=== PATIENT | female | born 1960 | race Caucasian/White ===

== ENCOUNTER 2016-10-23 23:13 | Emergency (ER) | payer OTHER ==
[~2016-10-23] VITALS: Ht 160 cm; Wt 61.0 kg
[~2016-10-23 23:13] MED LIST: ASPI325T4 PO; CYCL-319 PO; FELO10TA PO; FENO160T13 PO; FURO20TA3 PO; GABA-526 PO; GLIP5TAB13 PO; LANT3I SC; METO-429 PO; NIT4 SL; NOVO3I SC; PANT40TA4 PO
[2016-10-23 23:34] VITALS: Ht 160 cm; Wt 61.0 kg
--- NOTE | 2016-10-24 02:18 | ERD ---
ER Documentation Chief Complaint Date/Time DATE: 10/24/16 TIME: 02:12 Chief Complaint non-healing wound over R 3rd toe x 3 days now, hx DM HPI This is a 56-year-old female presenting to emergency department for wound on right third toe 3 days. Patient states she had her nails trimmed 3 days ago. Patient states she soaked her nail in water and states that nail fell off while she was asleep. No fevers or chills. No surrounding erythema, warmth, or drainage. ROS All systems reviewed and are negative except as per history of present illness. Medications Home Meds Active Scripts Cephalexin* (Keflex*) 500 Mg Capsule, 500 MG PO QID for 5 Days, CAP Prov:FAMILIA PRESLEY NP 10/24/16 Insulin Aspart* (Novolog Insulin Pen*) 100 Unit/Ml Soln, 5 UNIT SC AC MEALS for 28 Days Prov:STEF MURO MD 09/16/16 Pantoprazole* (Pantoprazole*) 40 Mg Tablet.dr, 40 MG PO DAILY@06 for 28 Days Prov:STEF MURO MD 09/16/16 Aspirin (Aspirin Lite-Coat) 325 Mg Tablet, 325 MG PO DAILY for 28 Days, TAB Prov:STEF MURO MD 09/16/16 Nitroglycerin* (Nitrostat*) 0.4 Mg Tab.subl, 1 TAB SL Q5M Y for ANGINA for 28 Days Prov:STEF MURO MD 09/16/16 Furosemide* (Furosemide*) 20 Mg Tablet, 20 MG PO DAILY for 28 Days, #60 TAB Prov:STEF MURO MD 09/16/16 Reported Medications Metoprolol Tartrate* (Lopressor*) 50 Mg Tab, 50 MG PO BID, #60 TAB 09/13/16 Fenofibrate, Micronized* (Fenofibrate*) 160 Mg Tablet, 160 MG PO DAILY, TAB 09/13/16 Gabapentin* (Gabapentin*) 600 Mg Tablet, 600 MG PO BID, #60 TAB 09/13/16 Felodipine* (Felodipine*) 10 Mg Tab.sr.24h, 10 MG PO DAILY, TAB.SA 09/13/16 Glipizide* (Glipizide*) 5 Mg Tablet, 5 MG PO AC BREAKFAST DINNER, TAB 09/13/16 Insulin Glargine* (Lantus*) 100 Unit/Ml Soln, 30 UNIT SC QHS, #1 VIAL 09/13/16 Cyclobenzaprine Hcl* (Cyclobenzaprine Hcl*) 10 Mg Tablet, 10 MG PO Q8 Y for as needed, #60 TAB 09/13/16 Allergies Allergies: Coded Allergies: No Known Allergy (Unverified , 09/13/16) PMhx/Soc History of Surgery: Yes (, tubal ligation) Anesthesia Reaction: No Hx Neurological Disorder: No Hx Respiratory Disorders: No Hx Cardiac Disorders: Yes (chf, htn, hyperlipidemia) Hx Psychiatric Problems: No Hx Miscellaneous Medical Probl: Yes (DM) Hx Alcohol Use: No Hx Substance Use: No Hx Tobacco Use: No Smoking Status: Never smoker Physical Exam Vitals Vital Signs Date Time Temp Pulse Resp B/P Pulse Ox O2 Delivery O2 Flow Rate FiO2 10/23/16 23:34 97.3 78 18 177/75 100 Physical Exam Const: alert, no acute distress Head: Atraumatic Eyes: Normal Conjunctiva ENT: Normal External Ears, Nose and Mouth. Neck: Full range of motion..~ No meningismus. Resp: Clear to auscultation bilaterally Cardio: Regular rate and rhythm, no murmurs Abd: Soft, non tender, non distended. Normal bowel sounds Skin: Nail missing to right 3rd toe, bloody drainage. no active bleeding Back: No midline or flank tenderness Ext: No cyanosis, or edema Neur: Awake and alert Psych: Normal Mood and Affect Result Diagram: 10/24/16 0324 10/24/16 0324 Results 24 hrs Laboratory Tests Test 10/24/16 03:24 10/24/16 04:35 White Blood Count 7.710^3/ul Red Blood Count 3.5910^6/ul Hemoglobin 9.3g/dl Hematocrit 28.6% Mean Corpuscular Volume 79.7fl Mean Corpuscular Hemoglobin 25.9pg Mean Corpuscular Hemoglobin Concent 32.5g/dl Red Cell Distribution Width 14.1% Platelet Count 79386^3/UL Mean Platelet Volume 9.8fl Neutrophils % 58.6% Lymphocytes % 31.3% Monocytes % 6.1% Eosinophils % 2.9% Basophils % 0.7% Nucleated Red Blood Cells % 0.0/100WBC Neutrophils # (Manual) 510^3/ul Lymphocytes # 2.410^3/ul Monocytes # 0.510^3/ul Eosinophils # 0.210^3/ul Basophils # 0.110^3/ul Nucleated Red Blood Cells # 0.010^3/ul Sodium Level 136mmol/L Potassium Level 3.7mmol/L Chloride Level 97mmol/L Carbon Dioxide Level 25mmol/L Anion Gap 18 Blood Urea Nitrogen 56mg/dl Creatinine 1.88mg/dl Glucose Level 402mg/dl Calcium Level 9.5mg/dl Bedside Glucose 346mg/dL Current Medications Medications (Trade) Dose Ordered Sig/Kenneth Route PRN Reason Start Time Stop Time Status Last Admin Dose Admin Insulin Human Lispro (Humalog) 10 unit ONCE STAT SC 10/24/16 04:06 10/24/16 04:40 DC Insulin Human Lispro (Humalog) 5 unit ONCE STAT SC 10/24/16 04:39 10/24/16 04:41 DC 10/24/16 04:46 Procedures/MDM [place] [address] Radiology Main Line: [phone] DIAGNOSTIC IMAGING REPORT Patient: FRANCOISE ANDERS : 1960 Age: 56 Sex: F MR #: [id number] DOS: 10/24/16 0113 Ordering MD: FAMILIA PRESLEY NP Location: [facility] Room/Bed: PROCEDURE: X-ray right foot CLINICAL INDICATION: Injury to the third toe of the right foot is not healing. TECHNIQUE: Single AP view of the right foot. COMPARISON: None FINDINGS: Mild soft tissue swelling over the distal third digit of the right foot. No evident osseous lucency is seen to suggest osteomyelitis. If there is concern for osteomyelitis MRI examination may be of further use. No evident acute fracture. Soft tissues otherwise unremarkable. IMPRESSION: No plain film evidence of osteomyelitis, and MRI examination may be of further use. MDM: 56 year old female, with past medical history for diabetes mellitus type 2 on insulin, presents to ER with right foot 3rd digit injury x 3 days. Patient had her nails trimmed at a salon, soaked her nails afterwards and then noticed that her nail on right 3rd toe was missing. Patient now having pain to right 3rd toe. No numbness/tingling. No loss of sensation. Blood glucose 402 upon initial assessment. Recheck of blood glucose shows 346. Patient usually takes 5 units humalog at home. Patient given 5 unit humalog SQ. CBC shows no significant anemia or infection. CMP shows creatinine 1.88, BUN 56. Looking back at previous records this appears to be patient's baseline levels. Patient is eating and drinking normally. No active vomiting while in ED. XR right foot reviewed by radiologist as no plain film evidence of osteo-myelitis. Patient appears stable. Vital signs are stable. No acute distress. Low suspicion for sepsis or osteomyelitis. Differential diagnosis includes but not limited to cellulitis versus normal wound healing. Patient is appropriate for outpatient management instructed to follow-up with primary care provider for referral to prenatal genetic counselor and/or amputation prevention center. Patient will be given prescription for Keflex. Return to ED for any high fever, chest pain, difficulty breathing, shortness breath, wheezing, vomiting, diarrhea, abdominal pain or any new or worsening symptoms. Patient verbalizes understanding. All questions answered at discharge. Departure Diagnosis: Primary Impression: Wound infection Condition: Stable FAMILIA PRESLEY NP Oct 24, 2016 02:17
--- NOTE | 2016-10-24 02:29 | RADRPT ---
PROCEDURE: X-ray right foot CLINICAL INDICATION: Injury to the third toe of the right foot is not healing. TECHNIQUE: Single AP view of the right foot. COMPARISON: None FINDINGS: Mild soft tissue swelling over the distal third digit of the right foot. No evident osseous lucency is seen to suggest osteomyelitis. If there is concern for osteomyelitis MRI examination may be of further use. No evident acute fracture. Soft tissues otherwise unremarkable. IMPRESSION: No plain film evidence of osteomyelitis, and MRI examination may be of further use. RPTAT: [facility] Physician Louis Date Time Electronically viewed and signed by Physician Louis on 10/24/2016 02:28 RS/
[2016-10-24 03:39] LABS: BASOPHIL # 0.1 10^3/ul (0.0-0.1); BASOPHILS % 0.7 % (0.0-2.0); EOSINOPHILS # 0.2 10^3/ul (0.0-0.5); EOSINOPHILS % 2.9 % (0.0-7.0); HEMATOCRIT 28.6 % (37.0-47.0); HEMOGLOBIN 9.3 g/dl (12.0-16.0); LYMPHOCYTES # 2.4 10^3/ul (0.8-2.9); LYMPHOCYTES % 31.3 % (15.0-51.0); MEAN CORPUSCULAR HEMOGLOBIN 25.9 pg (29.0-33.0); MEAN CORPUSCULAR HGB CONC 32.5 g/dl (32.0-37.0); MEAN CORPUSCULAR VOLUME 79.7 fl (82.0-101.0); MEAN PLATELET VOLUME 9.8 fl (7.4-10.4); MONOCYTE # 0.5 10^3/ul (0.3-0.9); MONOCYTES % 6.1 % (0.0-11.0); NEUTROPHILS % 58.6 % (39.0-77.0); PLATELET COUNT 585 10^3/UL (140-415); RED BLOOD COUNT 3.59 10^6/ul (4.20-5.40); RED CELL DISTRIBUTION WIDTH 14.1 % (11.5-14.5); WHITE BLOOD COUNT 7.7 10^3/ul (4.8-10.8)
[2016-10-24 03:58] LABS: CALCIUM 9.5 mg/dl (8.4-10.2); CREATININE 1.88 mg/dl (0.44-1.00); POTASSIUM 3.7 mmol/L (3.5-5.1)
[2016-10-24] MEDS ORDERED: INSULIN LISPRO 100 UNIT/ML VIAL SC STA ×2 (04:06→04:39)
[2016-10-24] MEDS ORDERED: CEPH-443 PO (04:47)
[2016-10-24 05:51] VITALS: BP 180/81; PULSE 78; RESP 18
== END 2016-10-24 05:53 | disposition home or self-care (01) ==
LOC: FTE 23:13
DX: S91.204A Unspecified open wound of right lesser toe(s) with damage to nail, initial encounter (principal); I10 Essential (primary) hypertension; E11.9 Type 2 diabetes mellitus without complications; I50.9 Heart failure, unspecified; X58.XXXA Exposure to other specified factors, initial encounter; Y92.9 Unspecified place or not applicable; Z79.84 Long term (current) use of oral hypoglycemic drugs; Z79.82 Long term (current) use of aspirin
CPT/HCPCS: 73620; 80048; 82962; 85025; 96372; J1815; Z7502

== ENCOUNTER 2017-04-29 18:54 | Inpatient (IN) | END 2017-05-09 18:22 | disposition home or self-care (01) | DRG 280 ==

== ENCOUNTER 2017-08-12 00:49 | Inpatient (IN) | END 2017-08-23 17:10 | disposition home or self-care (01) | DRG 247 ==

== ENCOUNTER 2017-09-09 16:12 | Inpatient (IN) | END 2017-09-14 19:30 | disposition home or self-care (01) | DRG 637 ==

== ENCOUNTER 2018-03-03 15:09 | Inpatient (IN) | payer OTHER ==
[~2018-03-03] VITALS: Ht 152.4 cm; Wt 64.1 kg
[~2018-03-03 15:09] MED LIST changes: -ASPI325T4 PO; +ASPI81TA52 PO; +ATOR-2 PO; +CARV12.579 PO; +CLOP75TA27 PO; -CYCL-319 PO; +CYCL10TA7 PO; +DOCU-216 PO; +DOCU100T PO; +FAMO20TA18 PO; -FELO10TA PO; -FENO160T13 PO; +FENO54TA7 PO; -FURO20TA3 PO; -GLIP5TAB13 PO; +HYDR-3601 PO; +HYDR-3671 PO; +ISOS60TA PO; +LINA5TAB PO; +LORA-441 PO; +LUBI24CA7 PO; -METO-429 PO; +NIFE60TA2 PO; -NIT4 SL; +NITR0.4T39 SL; -PANT40TA4 PO; +POLY17PO3 PO
--- NOTE | 2018-03-03 19:29 | ERD ---
ER Documentation Chief Complaint Chief Complaint Complains of swollen hands and feet x 2 days HPI 57-year-old woman with history of chronic kidney disease not yet requiring hemodialysis initially presented with bilaterally swollen feet although upon further questioning she states she has bilateral flank and back pain and generally feels weak and has had chills. She denies abdominal pain, no vomiting or diarrhea, no blood per rectum or melena, no hematuria. Her back and flank pain is nonradiating and nonexertional. ROS All systems reviewed and are negative except as per history of present illness. Medications Home Meds Active Scripts Nifedipine (Procardia Xl) 60 Mg Tab.er.24, 60 MG PO DAILY for 28 Days, TAB Prov:STEF MURO MD 09/14/17 Reported Medications Lorazepam* (Lorazepam*) 0.5 Mg Tablet, 0.5 MG PO HS PRN for ANXIETY, TAB 03/03/18 Famotidine* (Famotidine*) 20 Mg Tablet, 20 MG PO DAILY, #30 TAB 03/03/18 Insulin Lispro (Humalog) 100 Unit/1 Ml Cartridge, 8 UNIT SQ TIDM A, EA 03/03/18 Insulin Glargine,Hum.rec.anlog (Basaglar Kwikpen U-100) 100 Unit/1 Ml Insuln.pen, 22 UNIT SC QHS, EA 03/03/18 Atorvastatin* (Atorvastatin*) 40 Mg Tablet, 40 MG PO QHS, #30 TAB 03/03/18 Nitroglycerin* (Nitrostat*) 0.4 Mg Tab.subl, 0.4 MG SL Q5MIN PRN for CHEST PAIN, BOTTLE 09/09/17 Fenofibrate, Micronized (Fenofibrate) 54 Mg Tablet, 54 MG PO DAILY, TAB 09/09/17 Gabapentin* (Gabapentin*) 600 Mg Tablet, 600 MG PO QHS, #90 TAB 09/09/17 Clopidogrel Bisulfate (Clopidogrel) 75 Mg Tablet, 75 MG PO DAILY, #30 TAB 09/09/17 Aspirin (Low Dose Aspirin) 81 Mg Tablet.dr, 81 MG PO DAILY, #30 TAB 09/09/17 Hydralazine Hcl* (Hydralazine Hcl*) 25 Mg Tab, 25 MG PO BID PRN for ANXIETY, #60 TAB 09/09/17 Carvedilol* (Carvedilol*) 12.5 Mg Tablet, 12.5 MG PO BID, #60 TAB 09/09/17 Isosorbide Mononitrate* (Isosorbide Mononitrate*) 60 Mg Tab.er.24h, 60 MG PO BID, TAB 09/09/17 Discontinued Reported Medications Docusate Sodium* (Dok*) 100 Mg Tablet, 100 MG PO BID PRN for CONSTIPATION, #60 CAP 09/09/17 Linagliptin (TRADJENTA) 5 Mg Tablet, 5 MG PO DAILY, TAB 09/09/17 Atorvastatin* (Atorvastatin*) 80 Mg Tablet, 80 MG PO QHS, #30 TAB 09/09/17 Cyclobenzaprine Hcl* (Cyclobenzaprine Hcl*) 10 Mg Tablet, 10 MG PO Q8 PRN for MUSCLE SPASMS, #60 TAB 09/09/17 Discontinued Scripts Insulin Glargine* (Lantus*) 100 Unit/Ml Soln, 26 UNIT SC DAILY@20 for 28 Days, #30 Prov:STEF MURO MD 09/14/17 Insulin Aspart* (Novolog Insulin Pen*) 100 Unit/Ml Soln, 3 UNIT SC WITH MEALS for 28 Days Prov:STEF MURO MD 09/14/17 Polyethylene Glycol* (Polyethylene Glycol*) 17 Gm Powd.pack, 17 GM PO DAILY for 14 Days Prov:STEF MURO MD 09/14/17 Lubiprostone* (Amitiza*) 24 Mcg Capsule, 24 MCG PO BID for 14 Days, CAP Prov:STEF MURO MD 09/14/17 Famotidine* (Famotidine*) 20 Mg Tablet, 20 MG PO QHS for 14 Days, TAB Prov:STEF MURO MD 09/14/17 Docusate Sodium (Dok) 100 Mg Capsule, 100 MG PO Q12H PRN for CONSTIPATION for 28 Days, CAP Prov:STEF MURO MD 09/14/17 Lorazepam* (Ativan*) 0.5 Mg Tablet, 0.5 MG PO BID PRN for anxiety for 7 Days, TAB Prov:STEF MURO MD 09/14/17 Hydrocodone Bit-Acetaminophen (Hydrocodone Bit-APAP) 5-325MG Tablet, 1 TAB PO Q6H PRN for MODERATE PAIN LEVEL 4-6 for 7 Days, TAB Prov:STEF MURO MD 09/14/17 Isosorbide Mononitrate* (Isosorbide Mononitrate*) 60 Mg Tab.er.24h, 60 MG PO DAILY for 28 Days Prov:STEF MURO MD 09/14/17 Allergies Allergies: Coded Allergies: No Known Allergies (Verified Allergy, Unknown, 03/03/18) PMhx/Soc uncontrolled hypertension, diabetes mellitus, chronic kidney disease, history of non-STEMI and CAD with PCI and stent placement to RCA and LAD, dyslipidemia, anemia History of Surgery: Yes () Anesthesia Reaction: No Hx Neurological Disorder: No Hx Respiratory Disorders: No Hx Cardiac Disorders: No Hx Psychiatric Problems: No Hx Miscellaneous Medical Probl: No Hx Alcohol Use: No Hx Substance Use: No Hx Tobacco Use: No FmHx Family History: No diabetes Physical Exam Vitals Vital Signs Date Temp Pulse Resp B/P (MAP) Pulse Ox O2 O2 Flow FiO2 Time Delivery Rate 03/03/18 92.7 61 20 164/77 99 15:14 (106) Physical Exam Const: No acute distress but appears confused somewhat, afebrile Head: Atraumatic Eyes: Normal Conjunctiva ENT: Normal External Ears, Nose and Mouth. Neck: Full range of motion. No meningismus. Resp: Clear to auscultation bilaterally Cardio: Regular rate and rhythm, no murmurs Abd: Soft, non tender, non distended. Skin: No petechiae or rashes Back: No midline or flank tenderness Ext: No cyanosis, or edema Neur: Awake and alert x3, she appears confused but she is able to answer simple questions and follow simple commands but has difficulty providing a thorough HPI, she has no focal deficits or facial asymmetry, pupils equal round reactive to light Psych: Normal Mood and Affect Result Diagram: 03/03/18 1950 03/03/18 1950 Results 24 hrs Laboratory Tests Test 03/03/18 19:00 03/03/18 19:50 Bedside Glucose 216 mg/dL White Blood Count 8.1 10^3/ul Red Blood Count 3.47 10^6/ul Hemoglobin 9.7 g/dl Hematocrit 31.6 % Mean Corpuscular Volume 91.1 fl Mean Corpuscular Hemoglobin 28.0 pg Mean Corpuscular Hemoglobin Concent 30.7 g/dl Red Cell Distribution Width 13.6 % Platelet Count 416 10^3/UL Mean Platelet Volume 9.7 fl Immature Granulocytes % 0.400 % Neutrophils % 74.6 % Lymphocytes % 16.7 % Monocytes % 4.8 % Eosinophils % 2.8 % Basophils % 0.7 % Nucleated Red Blood Cells % 0.0 /100WBC Immature Granulocytes # 0.030 10^3/ul Neutrophils # 6.1 10^3/ul Lymphocytes # 1.4 10^3/ul Monocytes # 0.4 10^3/ul Eosinophils # 0.2 10^3/ul Basophils # 0.1 10^3/ul Nucleated Red Blood Cells # 0.0 10^3/ul Urine Color RED Urine Clarity CLOUDY Urine pH 5.0 Urine Specific [place] 1.017 Urine Ketones NEGATIVE mg/dL Urine Nitrite NEGATIVE mg/dL Urine Bilirubin NEGATIVE mg/dL Urine Urobilinogen NEGATIVE mg/dL Urine Leukocyte Esterase NEGATIVE Beth/ul Urine Microscopic RBC 1 /HPF Urine Microscopic WBC 19 /HPF Urine Bacteria FEW /HPF Urine Granular Casts FEW /HPF Urine Hemoglobin 1+ mg/dL Urine Glucose 2+ mg/dL Urine Total Protein 3+ mg/dl Sodium Level 143 mmol/L Potassium Level 4.3 mmol/L Chloride Level 115 mmol/L Carbon Dioxide Level 20 mmol/L Anion Gap 8 Blood Urea Nitrogen 36 mg/dl Creatinine 1.50 mg/dl Est Glomerular Filtrat Rate mL/min 36 mL/min Glucose Level 209 mg/dl Calcium Level 9.1 mg/dl Total Bilirubin 0.1 mg/dl Direct Bilirubin 0.00 mg/dl Indirect Bilirubin 0.1 mg/dl Aspartate Amino Transf (AST/SGOT) 35 IU/L Alanine Aminotransferase (ALT/SGPT) 23 IU/L Alkaline Phosphatase 187 IU/L Total Protein 7.5 g/dl Albumin 3.7 g/dl Globulin 3.80 g/dl Albumin/Globulin Ratio 0.97 Lipase 79 U/L Current Medications Medications Dose Sig/Kenneth Start Time Status Last (Trade) Ordered Route PRN Stop Time Admin Dose Reason Admin Sodium 500 ml @ Q1H STAT 03/03/18 DC 03/03/18 Chloride 500 mls/hr IV 19:30 20:26 03/03/18 20:29 Ketorolac 15 mg ONCE STAT 03/03/18 DC 03/03/18 Tromethamine IV 19:30 20:25 (Toradol) 03/03/18 19:32 Oxycodone/ 1 tab ONCE ONCE 03/03/18 DC 03/03/18 Acetaminophen PO 19:30 20:24 (Percocet 03/03/18 (5/ 325)) 19:32 Procedures/MDM IV line was established patient was placed on cardiac technologist rhythm strip revealed a sinus rhythm at about 80 bpm with upright P and T waves. Patient was afebrile I administered 500 cc normal saline IV, Toradol 15 mg IV, Percocet 1 tablet p.o. for complaints of pain. CBC revealed mild anemia, electrolytes revealed dehydration and acute kidney injury with a BUN/creatinine of 36/1.5, liver function tests normal. Urinalysis positive for infection with cloudy urine and elevated urine WBCs and bacteria. I administered ceftriaxone 1 g IV x1. Given her history of chronic kidney injury and dehydration today I will admit her to [facility] for continued IV antibiotics. Patient was admitted to Dr. Muro. Departure Diagnosis: Primary Impression: Acute kidney injury superimposed on chronic kidney disease Additional Impressions: Dehydration Acute UTI Condition: NGA Hill MD Mar 03, 2018 19:29
[2018-03-03] MEDS ORDERED: KETOROLAC 15 MG INJ IV STA (19:30)
[2018-03-03] MEDS ORDERED: SOD CHLORIDE 0.9% 500 ML IV STA (19:30)
[2018-03-03] MEDS ORDERED: OXYCODONE/ACETAMINOPHEN (5/325) TAB PO ONE (19:30)
[2018-03-03] MEDS ORDERED: CEFTRIAXONE 1 GM/50 ML (PMX) 50 ML IVPB ONE (20:30)
[2018-03-03] MEDS ORDERED: ATOR40TA68 PO (21:01)
[2018-03-03] MEDS ORDERED: INSU100C SQ (21:02)
[2018-03-03] MEDS ORDERED: INSU100I33 SC (21:02)
[2018-03-03] MEDS ORDERED: LORA0.5T PO (21:03)
[2018-03-03] MEDS ORDERED: FAMO20TA18 PO (21:03)
[2018-03-03 21:39] VITALS: BP 140/55; PULSE 68; RESP 18
[2018-03-03 21:49] VITALS: Ht 152.4 cm; Wt 64.1 kg
[2018-03-03] MEDS ORDERED: DEXTROSE 50% 50 ML SYRINGE IV PRN ×4 (23:45)
[2018-03-03] MEDS ORDERED: GLUCOSE GEL 15 GRAM TUBE PO PRN ×4 (23:45)
[2018-03-03] MEDS ORDERED: GLUCAGON 1 MG INJ IM PRN ×2 (23:45)
[2018-03-03] MEDS ORDERED: GLUCOSE GEL 15 GRAM TUBE BUCCAL PRN ×2 (23:45)
[2018-03-04] MEDS ORDERED: LORAZEPAM 0.5 MG TAB PO PRN
[2018-03-04] MEDS ORDERED: NITROGLYCERIN (SL) 0.4 MG TAB SL PRN
[2018-03-04 01:57] VITALS: BP 158/72; PULSE 62; RESP 18
[2018-03-04] MEDS: ACCU-CHEK XX SCH (02:00)
[2018-03-04] MEDS: HYDROCODONE/APAP (5/325) TAB PO PRN ×2 (03:17→17:08)
[2018-03-04] MEDS: LEVOFLOXACIN 500MG/D5W (PMX) 100 ML IVPB SCH (06:01)
[2018-03-04 06:16] VITALS: BP 170/72; PULSE 72
[2018-03-04] MEDS ORDERED: ISOSORBIDE MONONITRATE(SR)60 MG TAB PO ONE (07:45)
[2018-03-04] MEDS ORDERED: NIFEdipine (XL) 60 MG TAB PO ONE (07:46)
[2018-03-04] MEDS: ISOSORBIDE MONONITRATE(SR)60 MG TAB PO SCH ×2 (07:50→20:27)
[2018-03-04] MEDS: NIFEdipine (XL) 60 MG TAB PO SCH (07:51)
[2018-03-04] MEDS: INSULIN ASPART [NOVOLOG] 3 ML PEN SC SCH ×4 (08:00→20:37)
[2018-03-04 08:24] VITALS: BP 191/81; PULSE 65; RESP 18
[2018-03-04] MEDS: FAMOTIDINE 20 MG TAB PO SCH (08:42)
[2018-03-04] MEDS: CLOPIDOGREL 75 MG TAB PO SCH (08:42)
[2018-03-04] MEDS: ASPIRIN (EC) 81 MG TAB PO SCH (08:42)
[2018-03-04] MEDS: FENOFIBRATE 48 MG TAB PO SCH (08:42)
[2018-03-04] MEDS ORDERED: NON-FORMULARY/PATIENT OWN MED (Fenofibrate, Micronized (Fenofibrate) 54 MG) PO SCH (09:00)
--- NOTE | 2018-03-04 10:58 | NUR ---
Notifed by the Marcy HENDRICKSON that she took the pt. took the bathroom and the pt. complained of dizziness, numb tongue, and a headache at 1052. WP=467/86,67. Call out to Dr. Ludwig at 1058. Dr. Blair responded at 1056. Advised of above problems. Orders received for Hydralazine. Abbie GARCIA is here now and also advised.
--- NOTE | 2018-03-04 11:10 | NUR ---
ASSISTED Pt TO THE RESTROOM, WHEN WALKING BACK Pt TO BED, Pt FELT VERY DIZZY AND SLEEPY. Pt DID NOT FEEL WELL, TOOK V/S B/P- 209/81 HR 67, O2 SATS 94%, Pt STATED "MY HEAD HURTS AND I HAVE ALOT PRESSURE" AND I NOTIFY RN CHAD. TOLD Pt TO STAY IN BED FOR NOW WILL OFFER BEDSIDE COMMODE FOR SAFETY.
--- NOTE | 2018-03-04 11:12 | HP ---
Date/Time of Note Date/Time of Note DATE: 03/04/18 TIME: 11:04 Assessment/Plan VTE Prophylaxis Risk score (from [facility])>0 risk: 1 SCD applied (from [facility]): Yes Pharmacological prophylaxis: NA/contraindicated Pharm contraindication: bleeding Lines/Catheters IV Catheter Type (from [facility] Saline Lock Assessment/Plan Hospital Course 1. UTI 2. Dm type ii 2. Acute on chronic renal failure likely secondary to UTI and dehydration. 4. History of non-STEMI, with PCI of RCA and LAD. 5. Chronic kidney disease stage III. 6. Hypertension. 7. Hyperlipidemia. 8. Anemia 9. Overweight 10. Hx of C section Assessment/Plan - admitted to med-surg. -antihypertensive - continue on IV fluids. - c/w Lantus for now, hypoglycemic control . - urine sodium will also be checked. -GI prophylaxis Famotidine BID -c/w a/b -c/w plavix/ Aspirin -renal US Result Diagram: 03/03/18 1950 03/03/18 1950 Results 24hrs Laboratory Tests Test 03/03/18 19:00 03/03/18 19:50 03/04/18 02:58 03/04/18 07:56 Bedside Glucose 216 85 86 White Blood 8.1 # Count Red Blood Count 3.47 L Hemoglobin 9.7 L Hematocrit 31.6 L Mean Corpuscular 91.1 Volume Mean Corpuscular 28.0 L Hemoglobin Mean Corpuscular 30.7 L Hemoglobin Nena nt Red Cell 13.6 Distribution Width Platelet Count 416 #H Mean Platelet 9.7 Volume Immature 0.400 Granulocytes % Neutrophils % 74.6 Lymphocytes % 16.7 Monocytes % 4.8 Eosinophils % 2.8 Basophils % 0.7 Nucleated Red 0.0 Blood Cells % Immature 0.030 Granulocytes # Neutrophils # 6.1 Lymphocytes # 1.4 Monocytes # 0.4 Eosinophils # 0.2 Basophils # 0.1 Nucleated Red 0.0 Blood Cells # Urine Color RED Urine Clarity CLOUDY A Urine pH 5.0 Urine Specific 1.017 [place] Urine Ketones NEGATIVE Urine Nitrite NEGATIVE Urine Bilirubin NEGATIVE Urine NEGATIVE Urobilinogen Urine Leukocyte NEGATIVE Esterase Urine 1 Microscopic RBC Urine 19 H Microscopic WBC Urine Bacteria FEW A Urine Granular FEW A Casts Urine Hemoglobin 1+ H Urine Glucose 2+ H Urine Total 3+ H Protein Sodium Level 143 Potassium Level 4.3 Chloride Level 115 H Carbon Dioxide 20 L Level Anion Gap 8 Blood Urea 36 H Nitrogen Creatinine 1.50 H Est Glomerular 36 L Filtrat Rate mL/min Glucose Level 209 Calcium Level 9.1 Total Bilirubin 0.1 L Direct Bilirubin 0.00 Indirect 0.1 Bilirubin Aspartate Amino 35 Transf (AST/SGOT ) Alanine 23 Aminotransferase (ALT/SGPT) Alkaline 187 H Phosphatase Total Protein 7.5 Albumin 3.7 Globulin 3.80 H Albumin/Globulin 0.97 Ratio Lipase 79 HPI/ROS Admit Date/Time Admit Date/Time Mar 03, 2018 at 20:17 Hx of Present Illness This is a 57-year-old with a past medical history of diabetes, hypertension, overweight, hyperlipidemia, non STEMI, s/p stenting to LAD and CKD stage III initially presented to ER with bilaterally swollen feet, bilateral flank and back pain and generally feels weak and has had chills. She denies abdominal pain, no vomiting or diarrhea, no blood per rectum or melena, no hematuria. CBC revealed mild anemia, electrolytes revealed dehydration and acute kidney injury with a BUN/creatinine of 36/1.5, liver function tests normal. Urinalysis positive for infection with cloudy urine and elevated urine WBCs and bacteria. ROS Genitourinary: no complaints, bleeding, dysuria, discharge, flank pain, hematuria, other Musculoskeletal: back pain PMH/Family/Social Past Medical History Medical History: diabetes, high cholesterol, hypertension, renal disease Medications Current Medications Diagnostic Test (Pha) (Accu-Chek) 1 ea 02 XX ; Start 03/04/18 at 02:00 Insulin Aspart (Novolog Insulin Pen) NOVOLOG *MODERATE* ALGORITHM WITH MEALS BEDTIME SC ; Start 03/04/18 at 08:00 Levofloxacin/ Dextrose 100 ml @ 100 mls/hr Q24H IVPB Last administered on 03/04/18at 06:01; Admin Dose 100 MLS/HR; Start 03/04/18 at 06:00 Acetaminophen/ Hydrocodone Bitart ([place] (5/325)) 1 tab Q6H PRN PO MODERATE PAIN LEVEL 4-6 Last administered on 03/04/18at 03:17; Admin Dose 1 TAB; Start 03/04/18 at 00:00 Miscellaneous Information 1 ea NOTE XX ; Start 03/03/18 at 23:45 Glucose (Glutose) 15 gm Q15M PRN PO DECREASED GLUCOSE; Start 03/03/18 at 23:45 Glucose (Glutose) 22.5 gm Q15M PRN PO DECREASED GLUCOSE; Start 03/03/18 at 23:45 Dextrose (D50w Syringe) 25 ml Q15M PRN IV DECREASED GLUCOSE; Start 03/03/18 at 23:45 Dextrose (D50w Syringe) 50 ml Q15M PRN IV DECREASED GLUCOSE; Start 03/03/18 at 23:45 Glucagon (Glucagen) 1 mg Q15M PRN IM DECREASED GLUCOSE; Start 03/03/18 at 23:45 Glucose (Glutose) 15 gm Q15M PRN BUCCAL DECREASED GLUCOSE; Start 03/03/18 at 23:45 Aspirin (Halfprin) 81 mg DAILY PO Last administered on 03/04/18at 08:42; Admin Dose 81 MG; Start 03/04/18 at 09:00 Atorvastatin Calcium (Lipitor) 40 mg QHS PO ; Start 03/04/18 at 21:00 Carvedilol (Coreg) 12.5 mg BID PO Last administered on 03/04/18at 06:15; Admin Dose 12.5 MG; Start 03/04/18 at 09:00 Clopidogrel Bisulfate (plaVIX) 75 mg DAILY PO Last administered on 03/04/18at 08:42; Admin Dose 75 MG; Start 03/04/18 at 09:00 Famotidine (Pepcid) 20 mg DAILY PO Last administered on 03/04/18at 08:42; Admin Dose 20 MG; Start 03/04/18 at 09:00 Gabapentin (Neurontin) 600 mg QHS PO ; Start 03/04/18 at 21:00 Insulin Glargine (Lantus) 22 unit QHS SC ; Start 03/04/18 at 21:00 Isosorbide Mononitrate (Imdur) 60 mg BID PO Last administered on 03/04/18at 07:50; Admin Dose 60 MG; Start 03/04/18 at 09:00 Lorazepam (Ativan) 0.5 mg HS PRN PO ANXIETY; Start 03/04/18 at 00:00 Nifedipine (Procardia Xl) 60 mg DAILY PO Last administered on 03/04/18at 07:51; Admin Dose 60 MG; Start 03/04/18 at 09:00 Nitroglycerin (Nitroglycerin (Sl Tab) 0.4 Mg) 1 tab NOTE PRN SL CHEST PAIN; Start 03/04/18 at 00:00 Miscellaneous Information 1 ea NOTE XX ; Start 03/03/18 at 23:45 Glucose (Glutose) 15 gm Q15M PRN PO DECREASED GLUCOSE; Start 03/03/18 at 23:45 Glucose (Glutose) 22.5 gm Q15M PRN PO DECREASED GLUCOSE; Start 03/03/18 at 23:45 Dextrose (D50w Syringe) 25 ml Q15M PRN IV DECREASED GLUCOSE; Start 03/03/18 at 23:45 Dextrose (D50w Syringe) 50 ml Q15M PRN IV DECREASED GLUCOSE; Start 03/03/18 at 23:45 Glucagon (Glucagen) 1 mg Q15M PRN IM DECREASED GLUCOSE; Start 03/03/18 at 23:45 Glucose (Glutose) 15 gm Q15M PRN BUCCAL DECREASED GLUCOSE; Start 03/03/18 at 23:45 Fenofibrate (Tricor) 48 mg DAILY PO Last administered on 03/04/18at 08:42; Admin Dose 48 MG; Start 03/04/18 at 09:00 Hydralazine HCl (Apresoline) 10 mg Q6H PRN IV SBP GREATER THAN 160; Start 03/04/18 at 11:00 Coded Allergies: No Known Allergies (Verified Allergy, Unknown, 03/03/18) Past Surgical History Past Surgical Hx: angioplasty, other (C section) Family History Significant Family History: no pertinent family hx, diabetes Social History Alcohol Use: none Smoking Status: Never smoker Drug Use: none Exam/Review of Systems Vital Signs Vitals Vital Signs Date Temp Pulse Resp B/P (MAP) Pulse Ox O2 O2 Flow FiO2 Time Delivery Rate 03/04/18 98.1 65 18 191/81 96 Room Air 08:24 (117) Intake and Output 03/03/18 03/03/18 03/04/18 1515:00 23:00 07:00 IntakeIntake Total 100 ml BalanceBalance 100 ml Exam Constitutional: alert, oriented Respiratory: clear to auscultation Cardiovascular: regular rate and rhythm Gastrointestinal: soft Genitourinary - Female: nl adnexae, nl external genitalia, CMT, CVA tenderness, uterus, other DB WATSON Mar 04, 2018 11:12
[2018-03-04] MEDS: hydrALAzine 20 MG INJ IV PRN (11:25)
[2018-03-04] MEDS ORDERED: SOD CHLORIDE 0.9% 1,000 ML IV SCH (12:30)
[2018-03-04 14:33] VITALS: BP 148/62; PULSE 68; RESP 18
--- NOTE | 2018-03-04 17:47 | NUR ---
End of shift- afebrile today. Medicated with [facility] earlier for chronic back pain. Blood sugars wnl. BP controlled with Hydralazine added.
[2018-03-04 19:30] VITALS: BP 135/63; PULSE 64; RESP 17
[2018-03-04] MEDS: ATORVASTATIN 40 MG TAB PO SCH (20:28)
[2018-03-04] MEDS: GABAPENTIN 300 MG CAP PO SCH (20:28)
[2018-03-04] MEDS: INSULIN GLARGINE [LANtus] 3 ML PEN SC SCH (20:37)
[2018-03-05] VITALS (10 sets, daily range): BP systolic 129–188; BP diastolic 62–84; PULSE 65–85; RESP 18–20
[2018-03-05] MEDS: ACCU-CHEK XX SCH (02:24)
[2018-03-05] MEDS: LEVOFLOXACIN 500MG/D5W (PMX) 100 ML IVPB SCH (05:02)
--- NOTE | 2018-03-05 05:34 | NUR ---
pt alert,oriented x3, no sob, denies pain. no dysuria noted, voiding freely. no acute changes noted
[2018-03-05] MEDS: INSULIN ASPART [NOVOLOG] 3 ML PEN SC SCH ×4 (08:05→22:01)
[2018-03-05] MEDS: CLOPIDOGREL 75 MG TAB PO SCH (08:38)
[2018-03-05] MEDS: FAMOTIDINE 20 MG TAB PO SCH (08:39)
[2018-03-05] MEDS: NIFEdipine (XL) 60 MG TAB PO SCH (08:39)
[2018-03-05] MEDS: ISOSORBIDE MONONITRATE(SR)60 MG TAB PO SCH ×2 (08:39→21:56)
[2018-03-05] MEDS: FENOFIBRATE 48 MG TAB PO SCH (08:39)
[2018-03-05] MEDS: ASPIRIN (EC) 81 MG TAB PO SCH (08:40)
[2018-03-05] MEDS: hydrALAzine 20 MG INJ IV PRN (12:04)
--- NOTE | 2018-03-05 13:00 | NUR ---
tomas Leiva is here to see the patient and notified her regarding the patient's high blood pressure and gave hydralazine ivp and went down to normal after that.she increased some blood pressure medication and will carry out the orders.patient c/o right foot pain.notified her regarding that and she said''i will check the patient''
--- NOTE | 2018-03-05 13:35 | PN ---
Date/Time of Note Date/Time of Note DATE: 03/05/18 TIME: 13:34 Assessment/Plan VTE [place] [facility] [place]: 1 [place] [facility] [place] Pharmacological prophylaxis: NA/contraindicated Pharm contraindication: bleeding Lines/Catheters IV Catheter Type (from [facility] Saline Lock Assessment/Plan Hospital Course 1. UTI 2. Dm type ii , uncontrolled 2. Acute on chronic renal failure likely secondary to UTI and dehydration. Creatinine is trending down 4. History of non-STEMI, with PCI of RCA and LAD. 5. Chronic kidney disease stage III. 6. Hypertension, uncontrolled. 7. Hyperlipidemia. 8. Anemia, worse, down to 8.0 9. Overweight 10. Hx of C section 11. right foot pain? Uric acid level Assessment/Plan - med-surg. -urine culture is pending -antihypertensive increase - stop IV fluids. - c/w Lantus for now, hypoglycemic control . - urine sodium is normal -GI prophylaxis Famotidine BID -c/w a/b -start iron pills -c/w plavix/ Aspirin -renal US is negative -uric acid Result Diagram: 03/05/18 0545 03/05/18 0545 Results 24hrs Laboratory Tests Test 03/04/18 17:04 03/04/18 18:00 03/04/18 20:33 03/05/18 02:24 Bedside Glucose 139 219 144 Urine Random 64.84 Creatinine Urine Random 91 H Sodium Test 03/05/18 05:45 03/05/18 08:02 03/05/18 12:11 White Blood 6.4 # Count Red Blood Count 2.87 L Hemoglobin 8.0 L Hematocrit 26.1 L Mean Corpuscular 90.9 Volume Mean Corpuscular 27.9 L Hemoglobin Mean Corpuscular 30.7 L Hemoglobin Nena nt Red Cell 13.7 Distribution Width Platelet Count 342 Mean Platelet 10.0 Volume Immature 0.300 Granulocytes % Neutrophils % 63.8 Lymphocytes % 23.5 Monocytes % 6.9 Eosinophils % 5.0 Basophils % 0.5 Nucleated Red 0.0 Blood Cells % Immature 0.020 Granulocytes # Neutrophils # 4.1 Lymphocytes # 1.5 Monocytes # 0.4 Eosinophils # 0.3 Basophils # 0.0 Nucleated Red 0.0 Blood Cells # Sodium Level 143 Potassium Level 4.3 Chloride Level 114 H Carbon Dioxide 20 L Level Anion Gap 9 Blood Urea 28 H Nitrogen Creatinine 1.48 H Est Glomerular 36 L Filtrat Rate mL/min Glucose Level 147 # Hemoglobin A1c 8.8 H Calcium Level 8.4 Bedside Glucose 144 257 H Subjective 24 Hr Interval Summary Genitourinary: dysuria Musculoskeletal: bone/joint pain (left foot) Exam/Review of Systems Vital Signs Vitals Vital Signs Date Temp Pulse Resp B/P (MAP) Pulse Ox O2 O2 Flow FiO2 Time Delivery Rate 03/05/18 68 136/62 12:32 (86) 03/05/18 98.4 18 95 Room Air 08:32 Intake and Output 03/04/18 03/04/18 03/05/18 1515:00 23:00 07:00 IntakeIntake Total 820 ml 780 ml 100 ml OutputOutput Total 700 ml 125 ml 300 ml BalanceBalance 120 ml 655 ml -200 ml Exam Constitutional: alert, oriented Psych: no complaints Head: normocephalic Neck: supple Respiratory: clear to auscultation Cardiovascular: regular rate and rhythm Gastrointestinal: soft Musculoskeletal: range of motion (decreased left foot) Medications Medications Current Medications Diagnostic Test (Pha) (Accu-Chek) 1 ea 02 XX Last administered on 03/05/18at 02:24; Admin Dose 1 EA; Start 03/04/18 at 02:00 Insulin Aspart (Novolog Insulin Pen) NOVOLOG *MODERATE* ALGORITHM WITH MEALS BEDTIME SC Last administered on 03/05/18at 12:14; Admin Dose 6 UNIT; Start 03/04/18 at 08:00 Levofloxacin/ Dextrose 100 ml @ 100 mls/hr Q24H IVPB Last administered on 03/05/18at 05:02; Admin Dose 100 MLS/HR; Start 03/04/18 at 06:00 Acetaminophen/ Hydrocodone Bitart ([place] (5/325)) 1 tab Q6H PRN PO MODERATE PAIN LEVEL 4-6 Last administered on 03/04/18at 17:08; Admin Dose 1 TAB; Start 03/04/18 at 00:00 Miscellaneous Information 1 ea NOTE XX ; Start 03/03/18 at 23:45 Glucose (Glutose) 15 gm Q15M PRN PO DECREASED GLUCOSE; Start 03/03/18 at 23:45 Glucose (Glutose) 22.5 gm Q15M PRN PO DECREASED GLUCOSE; Start 03/03/18 at 23:45 Dextrose (D50w Syringe) 25 ml Q15M PRN IV DECREASED GLUCOSE; Start 03/03/18 at 23:45 Dextrose (D50w Syringe) 50 ml Q15M PRN IV DECREASED GLUCOSE; Start 03/03/18 at 23:45 Glucagon (Glucagen) 1 mg Q15M PRN IM DECREASED GLUCOSE; Start 03/03/18 at 23:45 Glucose (Glutose) 15 gm Q15M PRN BUCCAL DECREASED GLUCOSE; Start 03/03/18 at 23:45 Aspirin (Halfprin) 81 mg DAILY PO Last administered on 03/05/18 08:40; Admin Dose 81 MG; Start 03/04/18 at 09:00 Atorvastatin Calcium (Lipitor) 40 mg QHS PO Last administered on 03/04/18 20:28; Admin Dose 40 MG; Start 03/04/18 at 21:00 Carvedilol (Coreg) 12.5 mg BID PO Last administered on 03/05/18 08:39; Admin Dose 12.5 MG; Start 03/04/18 at 09:00 Clopidogrel Bisulfate (plaVIX) 75 mg DAILY PO Last administered on 03/05/18 08:38; Admin Dose 75 MG; Start 03/04/18 at 09:00 Famotidine (Pepcid) 20 mg DAILY PO Last administered on 03/05/18 08:39; Admin Dose 20 MG; Start 03/04/18 at 09:00 Gabapentin (Neurontin) 600 mg QHS PO Last administered on 03/04/18 20:28; Admin Dose 600 MG; Start 03/04/18 at 21:00 Insulin Glargine (Lantus) 22 unit QHS SC Last administered on 03/04/18 20:37; Admin Dose 22 UNIT; Start 03/04/18 at 21:00 Isosorbide Mononitrate (Imdur) 60 mg BID PO Last administered on 03/05/18 08:39; Admin Dose 60 MG; Start 03/04/18 at 09:00 Lorazepam (Ativan) 0.5 mg HS PRN PO ANXIETY; Start 03/04/18 at 00:00 Nitroglycerin (Nitroglycerin (Sl Tab) 0.4 Mg) 1 tab NOTE PRN SL CHEST PAIN; Start 03/04/18 at 00:00 Miscellaneous Information 1 ea NOTE XX ; Start 03/03/18 at 23:45 Glucose (Glutose) 15 gm Q15M PRN PO DECREASED GLUCOSE; Start 03/03/18 at 23:45 Glucose (Glutose) 22.5 gm Q15M PRN PO DECREASED GLUCOSE; Start 03/03/18 at 23:45 Dextrose (D50w Syringe) 25 ml Q15M PRN IV DECREASED GLUCOSE; Start 03/03/18 at 23:45 Dextrose (D50w Syringe) 50 ml Q15M PRN IV DECREASED GLUCOSE; Start 03/03/18 at 23:45 Glucagon (Glucagen) 1 mg Q15M PRN IM DECREASED GLUCOSE; Start 03/03/18 at 23:45 Glucose (Glutose) 15 gm Q15M PRN BUCCAL DECREASED GLUCOSE; Start 03/03/18 at 23:45 Fenofibrate (Tricor) 48 mg DAILY PO Last administered on 03/05/18at 08:39; Admin Dose 48 MG; Start 03/04/18 at 09:00 Hydralazine HCl (Apresoline) 10 mg Q6H PRN IV SBP GREATER THAN 160 Last administered on 03/05/18at 12:04; Admin Dose 10 MG; Start 03/04/18 at 11:00 Nifedipine (Procardia Xl) 90 mg DAILY PO ; Start 03/06/18 at 09:00; Status UNV Hydralazine HCl (Apresoline) 10 mg Q8H PRN PO SBP above 160; Start 03/05/18 at 14:00; Status UNV DB WATSON Mar 05, 2018 13:35
[2018-03-05] MEDS: POLYSACCHARIDE IRON COMPLEX CAP PO SCH ×2 (15:33→21:57)
--- NOTE | 2018-03-05 18:39 | NUR ---
all needs met.no acut events.patient said that her leg pain is better now.call light within reach.bed alarm on.she is resting comfortably in bed.
[2018-03-05] MEDS: GABAPENTIN 300 MG CAP PO SCH (21:57)
[2018-03-05] MEDS: ATORVASTATIN 40 MG TAB PO SCH (21:57)
[2018-03-05] MEDS: INSULIN GLARGINE [LANtus] 3 ML PEN SC SCH (21:59)
[2018-03-06 02:00] VITALS: BP 159/69; PULSE 76; RESP 17
[2018-03-06] MEDS: ACCU-CHEK XX SCH (02:38)
[2018-03-06] MEDS: LEVOFLOXACIN 500MG/D5W (PMX) 100 ML IVPB SCH (05:37)
--- NOTE | 2018-03-06 06:01 | NUR ---
no acute changes overnight. pt remained afebrile, vss. denied pain when asked. due meds given as ordered. fall precautions observed aith hourly rounding done. needs attended to and anticipated. will continue to monitor and will endorse accordingly.
[2018-03-06] MEDS: HYDROCODONE/APAP (5/325) TAB PO PRN (06:56)
[2018-03-06] MEDS: INSULIN ASPART [NOVOLOG] 3 ML PEN SC SCH ×3 (08:00→17:22)
[2018-03-06 08:41] VITALS: BP 160/70; PULSE 71; RESP 17
[2018-03-06] MEDS: FAMOTIDINE 20 MG TAB PO SCH (08:59)
[2018-03-06] MEDS: ISOSORBIDE MONONITRATE(SR)60 MG TAB PO SCH (08:59)
[2018-03-06] MEDS: CLOPIDOGREL 75 MG TAB PO SCH (08:59)
[2018-03-06] MEDS: POLYSACCHARIDE IRON COMPLEX CAP PO SCH (09:00)
[2018-03-06] MEDS: FENOFIBRATE 48 MG TAB PO SCH (09:00)
[2018-03-06] MEDS ORDERED: NIFEdipine (XL) 90 MG TAB PO SCH (09:00)
[2018-03-06] MEDS: ASPIRIN (EC) 81 MG TAB PO SCH (09:00)
[2018-03-06 09:15] VITALS: BP 188/88; PULSE 88; RESP 16
--- NOTE | 2018-03-06 09:15 | NUR ---
patient is crying and c/o left shoulder and neck pain.blood pressure also high side.around 7 am she already received the pain meds.norco.she said''it is not helping ,pain getting worse''used the unit secretary to get all the information and concern.she said''i am having headache and difficult breathing also with the pain''paged regarding this
[2018-03-06] MEDS ORDERED: HYDROCODONE/APAP (5/325) TAB PO ONE (10:00)
--- NOTE | 2018-03-06 10:00 | NUR ---
Talk with regarding the patient's complain of pain (left shoulder,neck and head).high blood pressure and sob.new orders received and will carry out the orders.
--- NOTE | 2018-03-06 11:00 | NUR ---
gave extra norco for pain and she is sleeping after that.
[2018-03-06 11:53] VITALS: BP 136/65; PULSE 61; RESP 16
--- NOTE | 2018-03-06 12:00 | NUR ---
patient said''feell better now''blood pressure also down to normal at this time.she is eating lunch.notified regarding the low hemoglobin level..he said''it is ok''no new orders received at this time .
[2018-03-06 14:18] VITALS: BP 124/58; PULSE 59
[2018-03-06 15:18] VITALS: BP 125/58; RESP 18
--- NOTE | 2018-03-06 16:37 | PDOCDIS ---
Discharge Instructions CONDITION [id number] Patient Condition: [id number] Stable HOME CARE INSTRUCTIONS: [id number] Diet Instructions: [id number] Reduced Sodium ACTIVITY: [id number] Activity Restrictions: Geprp2m Slowly Increase Activity FOLLOW UP/APPOINTMENTS Follow-up Plan f/u pcp 1 wk, see dr kalpana mai 2 wks STEF MURO MD Mar 06, 2018 16:37
[2018-03-06] MEDS ORDERED: HYDR-3672 PO (16:44)
[2018-03-06] MEDS ORDERED: NIFE90TA PO (16:44)
[2018-03-06] MEDS ORDERED: LORA0.5T PO (16:44)
[2018-03-06] MEDS ORDERED: NIF150 PO (16:44)
[2018-03-06] MEDS ORDERED: FENO48TA4 PO (16:44)
[2018-03-06] MEDS ORDERED: TRAM50TA2 PO (16:44)
--- NOTE | 2018-03-06 16:45 | NUR ---
nellie Marin is here to see the patient and discharge orders received.
--- NOTE | 2018-03-06 17:48 | QN ---
Documentation Comment [id number] STEF MURO MD Mar 06, 2018 17:48
--- NOTE | 2018-03-06 17:58 | DS ---
DATE OF ADMISSION: 03/03/2018 DATE OF DISCHARGE: HOSPITAL COURSE: The patient is with history of hypertension, history of CKD, who presented with UTI symptoms. The patient was started on empiric antibiotic. Urine culture was negative, but patient w as complaining of short of breath. Chest x-ray was done which was negative. Ultrasound of the kidne y was done which shows the patient has a mild increased renal cortical echogenicity. The patient's b lood pressure was controlled and the patient was cleared to be discharged home. DISCHARGE DIAGNOSES: 1. No urinary tract infection. 2. Hypertension. 3. Anemia. 4. Chronic kidney disease. 5. Diabetes mellitus. 6. Anxiety. 7. Dyslipidemia. DISCHARGE MEDICATIONS: To continue on: 1. Fenofibrate. 2. Hydralazine. 3. Nifedipine. 4. Niferex. 5. Tramadol. 6. Aspirin. 7. Lipitor. 8. Coreg. 9. Plavix. 10. Pepcid. 11. Gabapentin. 12. Insulin. 13. Lorazepam. 14. Nitroglycerin. FOLLOWUP: The patient is to follow up with PCP and Dr. Blair in 2 weeks. DISPOSITION: The patient is stable at the time of discharge. Dictated By: STEF MAST/ZULMA Conf#: [id number] DID#: [id number]
--- NOTE | 2018-03-06 18:20 | NUR ---
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 prescription from pharmacy.patient verbalized understanding.patient saying that ''i am taking insuline at home two kinds ,one night time and other one with meal'',i know how to take insuline''ask her to eat on time when she take insuline with meal.ask her to check the sugar and blood pressure also when take blood pressure meds.if it is too low ask her to check with pmd to adjust the medication .ask her to get the records for blood sugar and blood pressure.she verbalized understanding.explained to her regarding the hypoglycemia .patient's son translate her every thing.patient took her all the belongins and left the floor with stable condition via wheel chair. Addendum: 03/06/18 at 1854 by RUDI BREWSTER RN Amended: Links added.
== END 2018-03-06 18:32 | disposition home or self-care (01) | DRG 684 ==
LOC: E/R 15:09 → PP2 20:17
PROVIDERS: ADMIT Internal Medicine Nephrology; ATTEND Internal Medicine Nephrology
DX: N17.9 Acute kidney failure, unspecified (principal); E11.22 Type 2 diabetes mellitus with diabetic chronic kidney disease; I12.9 Hypertensive chronic kidney disease with stage 1 through stage 4 chronic kidney disease, or unspecified chronic kidney disease; E78.5 Hyperlipidemia, unspecified; I25.2 Old myocardial infarction; I25.10 Atherosclerotic heart disease of native coronary artery without angina pectoris; E86.0 Dehydration; N18.3 Chronic kidney disease, stage 3 (moderate); D64.9 Anemia, unspecified; E66.3 Overweight; E11.65 Type 2 diabetes mellitus with hyperglycemia; F41.9 Anxiety disorder, unspecified; Z95.5 Presence of coronary angioplasty implant and graft
CPT/HCPCS: 36415; 71045; 76775; 80048; 80053; 81001; 82962; 83036; 83540; 83690; 84155; 84300; 84560; 85025; 87086; J0360; J0696; J1815; J1885; J1956; J7030; J7040